=== PATIENT | female | born 1960 | race Caucasian/White ===

== ENCOUNTER 2025-04-20 09:00 | Inpatient (IN) | payer OTHER ==
[~2025-04-20] VITALS: Ht 160 cm; Wt 44.9 kg
[~2025-04-20 09:00] MED LIST: ASPIRIN325 MG PO; CYCLOBENZAPRINE10 MG PO; FENTANYL1 EAC4 TD; MORPHINE SULFAT15 M1 PO; OXYCODONE HCL10 MG PO
--- OUTSIDE RECORDS SUMMARY | 2025-04-20 09:05 | XMS ---
PreManage Notification: SWATHI VELOZ Security Nail Galvanizer Events No recent Security Events currently on file CRITERIA MET - [facility] - 2 Visits in 30 Days CARE PROVIDERS SANDRA GARAY Nurse Practitioner: Family [facility] PHONE: [phone] SUNSHINE SALAZAR Physician Salmon Troll Fisher Maddi MONSIVAISIE PHONE: [phone] DEANNA DOBBINS Nurse Practitioner: [facility] PHONE: [phone] [place] has no Care Guidelines for this patient. E.D. VISIT COUNT (12 MO.) 2 [facility] Martinez 1 [facility] H. TOTAL 3 NOTE: Visits indicate total known visits. ED/UCC VISIT TRACKING (12 MO.) 04/20/2025 09:00 [facility] [place] TYPE: Emergency COMPLAINT: - WEAKNESS 03/27/2025 01:31 [facility] [place] TYPE: Emergency COMPLAINT: - LT HIP PAIN 01/11/2025 18:19 [facility] OR TYPE: Emergency DIAGNOSES: - Compression of brain - Other specified disorders of brain - vomiting AMS - Nausea - Vomiting INPATIENT VISIT TRACKING (12 MO.) 03/27/2025 02:25 [facility] [place] TYPE: Medical Surgical COMPLAINT: - INTERTROCHANTERIC FX OF LT FEMUR,METASTATIC DIAGNOSES: - Anemia, unspecified - Anemia, unspecified - Atherosclerotic heart disease of [place] coronary artery without angina pectoris - Atherosclerotic heart disease of [place] coronary artery without angina pectoris - Displaced bicondylar fracture of left tibia, initial encounter for closed fracture - Displaced bicondylar fracture of left tibia, initial encounter for closed fracture - Displaced subtrochanteric fracture of left femur, initial encounter for closed fracture - Displaced subtrochanteric fracture of left femur, initial encounter for closed fracture - Fall on same level, unspecified, initial encounter - Fall on same level, unspecified, initial encounter - Hypo-osmolality and hyponatremia - Hypo-osmolality and hyponatremia - Malignant neoplasm of brain, unspecified - Other chronic pain - Other disorders of phosphorus metabolism - Pain in left hip - Tachycardia, unspecified - Tubal ligation status - Unspecified osteoarthritis, unspecified site - Unspecified osteoarthritis, unspecified site 01/12/2025 01:03 [facility] TYPE: General Medicine DIAGNOSES: - Adverse effect of unspecified drugs, medicaments and biological substances, initial encounter - Hyperglycemia, unspecified - Other specified disorders of brain - Other specified postprocedural states - Weakness - Cerebellum Mass [email or web address]
[2025-04-20] MEDS ORDERED: SODIUM CHLORIDE 0.9% 1,000 ML IV ONE ×2 (09:15→10:00)
[2025-04-20 09:21] LABS: BASOPHILS 0.4 % (0.1-1.2); EOSINOPHILS 1.9 % (0.7-5.8); LYMPHOCYTES 14.2 % (19.3-51.7); MCH 23.3 PG (25.6-32.2); MCHC 29.3 g/dL (32.2-35.5); MCV 79.6 fL (79.4-94.8); MONOCYTES 10.1 % (4.7-12.5); NEUTROPHILS 72.8 % (34.0-71.1); RBC 3.43 M/uL (3.93-5.22)
[2025-04-20] MEDS ORDERED: fentaNYL citrate 100 MCG/2 ML VIAL IV PRN (09:30)
[2025-04-20] MEDS ORDERED: TYLENOL325 MG PO (09:34)
[2025-04-20] MEDS ORDERED: DULCOLAX10 MG PR (09:35)
[2025-04-20 09:37] LABS: ALT (SGPT) 25.0 U/L (14-59); AST (SGOT) 78.0 U/L (15-37); GLOMERULAR FILTRATION RATE,EST 23.0 mL/min (>60); PROTEIN, TOTAL 8.0 g/dL (6.4-8.2); UREA NITROGEN 73.0 mg/dL (7-18)
[2025-04-20 09:40] LABS: LACTIC ACID, BLOOD 1.5 mmol/L (0.4-2.0)
[2025-04-20] MEDS ORDERED: LIDOCAINE 2% VISCOUS 6 ML SYR TOP ONE (10:00)
[2025-04-20 10:21] LABS: BLOOD/HGB, URINE LARGE (Negative); KETONE, URINE NEGATIVE (Negative); LEUK ESTERASE, URINE MODERATE (negative); NITRITE, URINE NEGATIVE (negative)
[2025-04-20 10:28] LABS: BACTERIA, URINE 1+ /hpf (negative); CASTS, URINE NONE SEEN \\lpf; CRYSTALS, URINE NONE SEEN (0-1+); EPITHELIAL CELLS, URINE 0 /lpf (0-1+); REFLEX CULTURE, URINE Yes (No)
[2025-04-20 10:38] LABS: CORONAVIRUS COVID-19 AG NEGATIVE (NEGATIVE)
[2025-04-20] MEDS ORDERED: SODIUM CHLORIDE 0.9% 500 ML IV PRN (11:00)
[2025-04-20 11:34] LABS: LACTIC ACID, BLOOD 1.5 mmol/L (0.4-2.0)
[2025-04-20] MEDS ORDERED: SODIUM CHLORIDE 0.9% 1,000 ML IV SCH ×2 (12:00→12:45)
[2025-04-20] MEDS ORDERED: PHARMACY RENAL DOSE ADJUSTMENT 1 DOSE MISC PO SCH (12:00)
[2025-04-20 12:52] VITALS: BP 110/64
[2025-04-20] MEDS ORDERED: ENOXAPARIN SODIUM 30 MG/0.3 ML SYR SUB-Q SCH (13:03)
--- NOTE | 2025-04-20 13:13 | NUR ---
THIS RN TO ER AT 1236, REPORT RECEIVED FROM LALY LAMBERT. THIS RN ESCORTS PT FROM ER TO MED-SURG VIA GURNEY, ARRIVES TO MED-SURG ROOM 112 AT 1245. PT IS AWAKE, ROUSE TO VOICE. TRANSFERRED TO BED VIA DRAW SHEET, TOLERATES THIS FAIR. RIDER CATHETER IN PLACE, DRAINS CLOUDY YELLOW URINE. VS OBTAINED, TACHYCARDIA NOTED. PT MOANS OCCASIONALLY, DOES NOT TOLERATE MOVEMENT WELL. TELEMETRY #[address] IV IN LW ADN RFA FLUSHED WITH 10 CC OF NS, PATENT. SPO2 98% ON 4LPM, TITRATED DOWN TO 3LPM. BED IN LOW POSITION, RAILS UP X4, BED ALARM ON, CALL LIGHT IN REACH. PT ORIENTED TO ROOM, BED AND CALL LIGHT. PT A&O X4.
[2025-04-20] MEDS ORDERED: OXYCODONE HCL5 M3 PO (13:26)
--- NOTE | 2025-04-20 14:21 | NUR ---
PT PASSES BM IN BED. PERICARE PROVIDED. LARGE BOWN FORMED STOOL PASSED. NOTED STAGE 3 PRESSURE INURY OVER SACROCOCCYGEAL REGION. WOUND BASED IS 90% PINK MOIST, NON-GRANULAR TISSUE, 10% ADHERENT YELLOW TISSUE. PT IS CACHECTIC, BONY STRUCTURES PROMINENT. PERIWOUND SKIN DENUDED, FRICTION AND SHEAR SUSPECTED ETIOLOGY. WOUND CLEANSED WITH NS AND PATTED DRY. TRIAD CREAM APPLIED OVER WOUND BASE. BREIF HELD TO AVOID EXCESS MOISTURE. INCONTINENCE PAD IN PLACE. UNABLE TO OBTAINED PHOTO. WOUND SIZE: 7 CM X 9 CM X 0.1 CM. WAFFLE STATIC OVERLAY IN PLACE OVER BED SURFACE. WARM PACK PROVIDED TO PT FOR COMFORT, WARM BLANKET PROVIDED. PT RESTS IN BED, CALM. CALL LIGHT IN REACH, VISITOR X3 AT BEDSIDE.
[2025-04-20 15:42] VITALS: BP 110/64
[2025-04-20] MEDS ORDERED: FENTANYL 25 MCG/HR 1 EA TDSY TD SCH (16:45)
--- NOTE | 2025-04-20 16:56 | NUR ---
NOTIFIED OF PT CONSISTENT NEED FOR PAIN MEDICATION AND ABSENCE OF FENTANYL PATCH PT USES AT HOME. NEW ORDERS RECEIVED. PT RECEIVED FENTANYL IV FOR PAIN ORDERED. FENTANYL PATCH PLACED ON RIGHT SHOULDER, SEE EMAR. PT RESTS IN BED, MOANS OCCASIONALLY. CALL LIGHT IN REACH. RFA IV C/D/I, NO REDNESS OR SWELLING NOTED, PATENT.
[2025-04-20] MEDS ORDERED: POTASSIUM CHLORIDE 10 MEQ TABCR PO ONE (17:30)
[2025-04-20 17:40] VITALS: BP 95/53
[2025-04-20 17:44] VITALS: BP 95/53
[2025-04-20] MEDS ORDERED: POTASSIUM BICARBONATE/CIT AC 20 MEQ TABEF PO ONE (18:00)
[2025-04-20] MEDS ORDERED: CALCITONIN SALMON 400 UNIT/2 ML IM ONE ×2 (18:30→23:00)
[2025-04-20] MEDS ORDERED: ZOLEDRONIC AC/MANNITOL/0.9NACL 4 MG/100 ML BAG IV ONE ×2 (18:30→23:00)
--- NOTE | 2025-04-20 19:39 | NUR ---
PT RESTING IN BED, CALL LIGHT WITHIN REACH. REPORT RECEIVED FROM LIEN LAGOS RN.
--- NOTE | 2025-04-20 20:00 | NUR ---
PT'S SON IN TO VISIT PT. DISCUSSED POC WITH PT AND SON.
--- NOTE | 2025-04-20 20:31 | NUR ---
BEDSIDE CPOX APPLIED TO PATIENT. SPO2 94% ra
[2025-04-20 21:01] VITALS: BP 103/57
--- NOTE | 2025-04-20 21:17 | NUR ---
V/S AND I&O'S COMPLETED. RIDER CARE DONE.
[2025-04-20 21:57] VITALS: BP 103/57
--- NOTE | 2025-04-20 22:00 | NUR ---
MEWS ASSESSMENT COMPLET. PT CONDITION UNCHANGED FROM PREVIOUS ASSESSMENT.
--- NOTE | 2025-04-20 23:40 | NUR ---
PT RESTING IN BED WITH EYES CLOSED AND RESPIRATIONS EVEN AND UNLABORED. O2 94% ON CPOX. CALL LIGHT WITHIN REACH.
[2025-04-21] VITALS (9 sets, daily range): BP systolic 102–124; BP diastolic 52–63
--- NOTE | 2025-04-21 00:08 | NUR ---
PT REPOSITIONED AND ORAL CARE PERFORMED AFTER ADMINISTERING PAIN MEDICATION. PT TOLERATED WELL. PT NOW RESTING IN BED WITH EYES CLOSED AND RESPIRATIONS EVEN AND UNLABORED. CALL LIGHT WITHIN REACH.
--- NOTE | 2025-04-21 01:37 | NUR ---
RECEIVED REPORT FROM ROLO RUFFIN. PT RESTING IN BED, IV FLUIDS INFUSING. FENTANYL PATCH VERIFIED TO RIGHT UPPER SHOULDER WITH TEGADERM IN PLACE. CALL LIGHT WITHIN REACH. PT MOANS WHEN ENTERING ROOM, PRN FENTANYL LAST GIVEN AT 2356, PT CAN HAVE DOSE Q20 MINUTES AT THIS TIME. PT DOES NOT ANSWER YES/NO TO PAIN JUST MOANS. UNABLE TO GIVE NUMERICAL RATING DESPITE ASKING AT THIS TIME, WHICH PRIOR RN STATES HAS CHANGED FOR HER SINCE SHE STARTED. TELE #[address], SINUS TACH IN THE 100'S. CPOX IN PLACE, RT ORDERED PATIENT RECEIVING FENTANYL FOR PAIN AND FULL CODE STATUS AT THIS TIME JUST TO MONITOR, SATS 94% ON 3L NC AT THIS TIME. ALL PATIENT CARE NEEDS MET AT THIS TIME, CALL LIGHT WITHIN REACH.
--- NOTE | 2025-04-21 02:31 | NUR ---
GATE CLERK REPORTED TO THIS RN LOW GRADE TEMP, PT IS MOANING, PRN FENTANYL GIVEN. WILL RECHECK TEMP AT 0400, IF INCREASED WILL NOTIFY MD. IV FLUIDS CHANGED OVER TO NEW BAG. RIDER OUT 600ML THE LAST 4HOURS, VERY LIGHT IN COLOR WITH HEAVY SEDIMENT, URINE CULTURE PENDING. CPOX REMAINS IN PLACE. THIS RN WITH GATE CLERK ASSISTANCE TURNED PATIENT ONTO RIGHT SIDE WITH PILLOWS. PT MOANED WITH PAIN. DESPITE PATIENT NOT GETTING UP OR BEING IMPULSIVE, BED ALARM PLACED FOR SAFETY.
[2025-04-21 04:38] LABS: BASOPHILS 0.3 % (0.1-1.2); EOSINOPHILS 0.1 % (0.7-5.8); LYMPHOCYTES 15.5 % (19.3-51.7); MCH 23.2 PG (25.6-32.2); MCHC 28.3 g/dL (32.2-35.5); MCV 82.1 fL (79.4-94.8); MONOCYTES 10.9 % (4.7-12.5); NEUTROPHILS 72.4 % (34.0-71.1); RBC 2.80 M/uL (3.93-5.22)
[2025-04-21 04:50] LABS: SMEAR REVIEW BLOOD SEE COMMENTS
[2025-04-21 04:53] LABS: GLOMERULAR FILTRATION RATE,EST 34.0 mL/min (>60); UREA NITROGEN 53.0 mg/dL (7-18)
--- NOTE | 2025-04-21 05:14 | NUR ---
MD CALLED WITH UPDATE ON LABS THIS MORNING. H/H THIS MORNING DROPPED 6.5/, PER MD TYPE & SCREEN/CROSSMATCH AND TRANSFUSE 1 UNIT PRBC. CALCIUM LEVEL IMPROVED TO 11.9, ORDER TO CHANGE FLUIDS TO 1/2NS @ 200ML/HR. K LEVEL DROPPED THIS MORNING TO 2.8, ORDER FOR 40MEQ X2 IV TO BE GIVEN. INFORMED OF TEMP THROUGHOUT NIGHT OF 100.5 AT 0200, THEN 99.8 AT 0445, PER OKAY TO ORDER DC TYLENOL 650MG RECTALLY Q6P. ORDERS REPEATED BACK TO MD, INPUT INTO THE COMPUTER AND WILL GET STARTED ON MEDS [place]. INCIDENT COMMANDER NOTIFIED OF CHANGES.
[2025-04-21] MEDS ORDERED: POTASSIUM CHLORIDE 10 MEQ/100 ML BAG IV SCH ×2 (05:15→05:30)
[2025-04-21] MEDS ORDERED: SODIUM CHLORIDE 0.45% 1,000 ML IV SCH ×2 (05:15→18:15)
[2025-04-21] MEDS ORDERED: ACETAMINOPHEN 650 MG SUPP PR PRN (05:15)
--- NOTE | 2025-04-21 05:36 | NUR ---
IV FLUIDS CHANGED OVER AT THIS TIME. LAB PRESENT IN THE ROOM DRAWING FOR ADDITIONAL LABS FOR BLOOD TRANSFUSION. CONSENT IS ON THE CHART, AWAITING MD ARRIVAL TO GET SIGNED.
--- NOTE | 2025-04-21 06:02 | NUR ---
MD NOTIFIED OF MEWS, INFORMED PT HAS HAD 1400ML UOP SINCE 10PM, SHE IS TACHYPNEIC AND MENTATION IS OFF, SHE ISNT ABLE TO REALLY MAKE NEEDS KNOWN AT THIS TIME, SHE MOANS IN PAIN CANNOT PROVIDE WITH A NUMERICAL SCALE. TEMP IMPROVED TO 99.0 ON OWN, PRN TYLENOL AVAILABLE IF NEEDED. IV FLUIDS INFUSING, POTASSIUM HAS BEEN STARTED. INFORMED WE NEED CONSENT REVIEWED WITH SON (POTENTIALLY) PATIENT UNABLE TO PROVIDE CONSENT AT THIS TIME, PER RN. MD WILL ROUND AND SIGN CONSENT HERE SHORTLY. NO OTHER ORDERS AT THIS TIME, WILL REVIEW VITALS Q1HR FOR THE NEXT 3 HRS PER MEWS SCORE.
[2025-04-21 06:20] LABS: ABO A; ANTIBODY SCREEN NEGATIVE; IS CROSSMATCH COMPATIBLE; RH POSITIVE
--- NOTE | 2025-04-21 06:24 | NUR ---
THIS RN PRESENT WITH , CALLED MART (SON) TO GET VERBAL CONSENT VIA PHONE FOR 1 UNIT PRBC TRANFUSION. PER SON, AGREES ON TRANFUSION AT THIS TIME.
--- NOTE | 2025-04-21 06:45 | NUR ---
PT BLOOD TRANFUSION STARTED, VS STABLE AT THIS TIME. PT REQUIRES X1 HOUR VITALS STILL X2 MORE HOURS PER ABNORMAL MEWS, WILL PASS ON TO DAY SHIFT STAFF. PT RESTING IN BED AT THIS TIME. NO CONCERNS AT THIS TIME, BED ALARM IN PLACE FOR SAFETY, PT IS NOT IMPULSIVE AT THIS TIME.
[2025-04-21] MEDS ORDERED: ZOLEDRONIC AC/MANNITOL/0.9NACL 4 MG/100 ML BAG IV ONE (07:00)
[2025-04-21] MEDS ORDERED: CALCITONIN SALMON 400 UNIT/2 ML IM ONE (07:00)
--- NOTE | 2025-04-21 07:00 | NUR ---
PER MD, ORDERED MEDS FOR HER HYPERCALCEMIA, ORDERS INPUT. NEW IV STARTED BY VERONICA FOR ADDITIONAL MEDS. IV FLUIDS/POTASSIUM INFUSING TO (R) WRIST, BLOOD PRODUCTS INFUSING TO (L) WRIST. REPEAT BMP ORDERED FOR 1200, WHICH IS 4HOURS POST TRANSFUSION FOR HYPERCALCEMIA. NO OTHER CONCERNS/ORDERS AT THIS TIME.
[2025-04-21] MEDS ORDERED: POTASSIUM CHLORIDE 20 MEQ in DEXTROSE 5% 250 ML IV ONE (07:30)
--- NOTE | 2025-04-21 08:16 | NUR ---
Patient awake, alert to self, no acute distress. Patient intermittently moans, she reports she is painful. Admin fentantyl 50mcg iv at this time. Fentanyl 25mcg patch noted to right deltoid. Blood infusing at this time, 125ml/hr, IV site patent. KCL iv started per order. IV sites are all patent at this time. Patient in bed resting, she appears comfortbale, no current needs. Bed alarm intact.
[2025-04-21] MEDS ORDERED: POTASSIUM CHLORIDE 40 MEQ,LIDOCAINE HCL 1% 40 MG in DEXTROSE 5% 250 ML IV ONE (09:30)
--- NOTE | 2025-04-21 09:32 | NUR ---
BLOOD INFUSION IS COMPLETE. IV IS FLUSHED AND CAPPED. ST IN TO ATTEMPT TO WORK WITH PATIENT. PATIENT REFUSES TO PARTICIPATE.
[2025-04-21] MEDS ORDERED: FENTANYL1 EAC4 TD (09:37)
[2025-04-21] MEDS ORDERED: FLEET ENEMA133 ML PR (09:38)
[2025-04-21] MEDS ORDERED: MILK OF MA400 MG/5 M PO (09:39)
[2025-04-21] MEDS ORDERED: MIRTAZAPINE7.5 MG PO (09:40)
[2025-04-21] MEDS ORDERED: SENNA8.6 MG PO (09:42)
--- NOTE | 2025-04-21 09:42 | NUR ---
MED REC COMPLETE
--- NOTE | 2025-04-21 10:11 | NUR ---
Patient left medical floor for imaging study.
--- NOTE | 2025-04-21 10:42 | EKG ---
[facility] [address] [facility] [place] [address] Signed Sinus tachycardia Abnormal ECG When compared with ECG of 27-MAR-2025 02:22, ST now depressed in Anterolateral leads T wave inversion now evident in Anterior leads Confirmed by JOSÉ MANUEL ASHTON MD ([id number]) on 04/21/2025 10:42:13 AM Electronically Signed By: JOSÉ MANUEL ASHTON 04/21/25 1042 PATIENT NAME: VELOZSWATHI Electrocardiogram DATE OF : 56 PHYSICIAN: JOSÉ MANUEL ASHTON REPORT #: [id number] REPORT IS CONFIDENTIAL AND NOT TO BE RELEASED WITHOUT AUTHORIZATION
--- NOTE | 2025-04-21 10:50 | NUR ---
Admin fentanyl 50mcg iv for 3/10 generalized pain.
--- NOTE | 2025-04-21 11:50 | NUR ---
ADMIN FENTATNYL 50MCH IV FOR REPORTS OF GENERALIZED PAIN. PT MOANING OUT, SHE REPORTS SHE IS PAINFUL. FAMILY MEMEBER AT BEDSIDE.
[2025-04-21 12:21] LABS: GLOMERULAR FILTRATION RATE,EST 44.0 mL/min (>60); UREA NITROGEN 49.0 mg/dL (7-18)
--- NOTE | 2025-04-21 13:19 | NUR ---
Patient moaning, she reports she is in pain. Admin fentanyl 50mcg iv at this time. SP02 93% on 2l, respirtions non labored.
--- NOTE | 2025-04-21 15:00 | NUR ---
Spoke with Violeta and her son Melvin. Pt would like to go home to her mom's house [facility] [address]. Pt is currently living at [facility]. Pt has declined rapidly since last admission. Pt completed a POLST form and Dr. Suazo signed for a DNR. Son is waiting for grandmother to visit this afternoon or in the morning to see if she and spouse could provide cg for hospice.
--- NOTE | 2025-04-21 16:00 | NUR ---
Spoke with Mela from [facility] and asked if they could accept this pt back as a Comfort Care/Hospice patient and she stated, "Yes".
[2025-04-21] MEDS ORDERED: ARTIFICIAL TEARS 15 ML BTL OU PRN (17:15)
[2025-04-21] MEDS ORDERED: ATROPINE SULFATE 1% OPTH DROPS SL PRN (17:15)
--- NOTE | 2025-04-21 17:32 | NUR ---
Admin fentanyl 50mcg iv at this time for reprted pain.
[2025-04-21] MEDS ORDERED: SODIUM CHLORIDE 0.9% 1,000 ML IV SCH (18:15)
--- NOTE | 2025-04-21 18:58 | NUR ---
Patient moaning out. Patient has been receiving iv fentanyl frequently, she still appears anxious/painful. New order obtained from Dr. Suazo to start ativan 1mg iv every four hours as needed for anxiety.
[2025-04-21] MEDS ORDERED: LORazepam 2 MG/ML VIAL IV PRN (19:00)
--- NOTE | 2025-04-21 19:40 | NUR ---
RECEIVED REPORT FROM LALY JIMENES. PT FAMILY DESTINEE AT BEDSIDE. JALIL RN IN TO MEDICATE AND REPOSITION.
--- NOTE | 2025-04-21 19:40 | NUR ---
Patient repositioned at this time. Patient moaning out, she reports she is painful. Admin ativan 1mg iv and fentanyl 50mcg iv. Family at bedside.
--- NOTE | 2025-04-21 20:45 | NUR ---
PT RESTING COMFORTABLY ON LEFT SIDE. DROWSY. NO REAL VERBAL RESPOSNSE, SOME FEW MUMBLES HEARD. NO S/S PAIN. LSC DIM, 2L O2 N/C IN PLACE-CPOX ON. HRR. BT HYPO. RFA IV W/ 1/2NS @ 200MLS/HR. 2 SL TO LEFT WRIST WNL. PT HAS LARGE BUMP TO LEFT VENTURA. F/C CLEAR YELLOW W/ SEDIMENT. WILL ASSESS SKIN AT LATER TIME WHEN REPOSITIONED.
--- NOTE | 2025-04-21 22:55 | NUR ---
NEW BAG IVF HUNG. PT CONT TO BE DROWSY. APPEARS COMFORTABLE.
--- NOTE | 2025-04-21 23:32 | NUR ---
PT STILL DROWSY, MINIMAL RESPONSES. SKIN CHECK COMPLETED, OPEN WOUND TO BILAT COCCYX. WOUND CLEANSED W/ SOAP AND WATER AND CREAM APPLIED. PT FLOATED ON PILLOWS. APPEARS COMFORTABLE.
--- NOTE | 2025-04-21 23:37 | NUR ---
RECEIVED ORDER FROM DR. ASHTON TO DC IVF. IVF DC'D AT THIS TIME.
--- NOTE | 2025-04-21 23:59 | NUR ---
FORESTRY WORKER DID RIDER CARE AND REPOSITIONED PT WITH RN
--- NOTE | 2025-04-22 00:56 | NUR ---
PT ASLEEP, APPEARS COMFORTABLE. NO SIGNS OR SYMPTOMS OF PAIN PRESENT.
--- NOTE | 2025-04-22 04:18 | NUR ---
PT REPOSITIONED TO RIGHT SIDE W/ MAX ASSIST. PT MOANING SLIGHTLY, GRIMACING. PT MEDICATED W/ PRN IV FENTANYL.
--- NOTE | 2025-04-22 05:10 | NUR ---
PT SLEEPING SOUNDLY. APPEARS COMFORTABLE, NO FURTHER MOANING.
--- NOTE | 2025-04-22 06:38 | NUR ---
PT NOTED TO HAVE 2 REMAINING GORDON TO LLE DISTAL INCISION. CHARGE NURSE BELEN NOTIFIED. WILL PASS ON TO DAYSHIFT.
--- NOTE | 2025-04-22 07:24 | NUR ---
MORNING REPORT RECIEVED FROM LALY MARIN. PT LAYING IN BED WITH EYES CLOSED CHEST RISE EQUAL BILAT. PT APPEARS CALM AND RELAXED AT THIS TIME WITH NO CURRENT NEEDS AT THIS TIME, PT HAS CALL LIGHT IN REACH. 2L NC IN PLACE FOR PT SAFETY.
--- NOTE | 2025-04-22 07:43 | NUR ---
PATIENT GIVEN 1MG OF IV ATIVAN, RESPIRATIONS ARE 40/MIN.
[2025-04-22] MEDS ORDERED: ENOXAPARIN SODIUM 40 MG/0.4 ML SYR SUB-Q SCH (09:00)
--- NOTE | 2025-04-22 09:30 | NUR ---
PT IS LAYING IN BED EYES CLOSED CHEST RISE EQUAL BILAT, PT APPEARS IN NO DISTRESS AT THIS TIME. PT IS CALM AND RELAXED CALL LIGHT IN REACH AND CURTAIN OPEN FOR PT SAFETY.
--- NOTE | 2025-04-22 10:33 | NUR ---
PT LAYING IN BED WITH EYES CLOSED CHEST RISE EQUAL BILAT, PT IS CALM AND APPEARS COMFORTABLE, PT HAS CURTAIN OPEN FOR PT SAFETY AND CALL LIGHT IN REACH IN NEEDED, PT WILL BE CHECKED ON AGAIN SOON.
--- NOTE | 2025-04-22 11:15 | NUR ---
PT LAYING IN BED, PT REPOSITIONED, PT TO BE REPOSITIONED AT 1200, PT HAS EYES CLOSED CHEST RISE EQUAL BILAT. PT HAS 2L NC IN PLACE AND CURTAIN OPEN FOR PT SAFETY. CALL LIGHT IN REACH. PT APPEARS COMFORTABLE AT THIS TIME.
--- NOTE | 2025-04-22 11:17 | NUR ---
VISITED DURING SPIRITUAL CARE ROUNDS. PT APPEARED TO BE SLEEPING. DID NOT DISTURB. PROVIDED PRAYER.
--- NOTE | 2025-04-22 11:55 | NUR ---
IN TO SPEAK WITH SON. PATIENT IS UNRESPONSIVE. SON STATES HIS GRANDMOTHER, PATIENT'S MOTHER, WILL BE IN THIS AFTERNOON. THEY PREFER TO TAKE PATIENT HOME FOR HOSPICE CARE. THEY DO NOT WANT HER RETURNING TO [facility]. STATES ANY OTHER FACILITY IS GOING TO BE TOO COSTLY. DISCUSSED POTENTIAL NEED FOR CAREGIVER ASSISTANCE AT HOME DUE TO HIGH LEVEL OF CARE REQUIRED FOR PATIENT MOBILITY. ALSO DISCUSSED TRANSPORTATION. INFORMED NO AMBULANCE SERVICE TO TRANSPORT PATIENT TO HOME. INFORMED LATITUDE HAS A STRETCHER SERVICE AND WHAT POTENTIAL COST OF TRANSPORT HOME WOULD BE. VERBALIZES UNDERSTANDING. PATIENT'S SON IS CONCERNED ABOUT [place] PAPERWORK. STATES PAPERWORK WAS GIVEN TO NURSING STAFF LAST NIGHT.
--- NOTE | 2025-04-22 12:42 | NUR ---
PT LAYING IN BED WITH EYES CLOSED CHEST RISE EQUAL BILAT, PT APPEARS COMFORTABLE AT THIS TIME WITH SON SITTING AT PT BED SIDE, THIS RN GOT ICE FOR THE FAMILY AND THE FAMILY STATES SHE HAS LOOKED COMFORTABLE AND DONT THINK SHE HAS ANY NEEDS. PT FAMILY ORIENTED TO ROOM AND CALL LIGHT IN REACH.
--- NOTE | 2025-04-22 13:47 | NUR ---
PT LAYING IN BED ITH EYES CLOSED CHEST RISE EQUAL BILAT WITH 2L NC IN PLACE. FAMILY IS AT PT BED SIDE AND PT APPEARS COMFORTABLE AND SHOWS NO SIGNS OF DISTRESS AT THIS TIME FAMILY HAS CALL LIGHT IN REACH IF ANYTHING IS NEEDED.
--- NOTE | 2025-04-22 14:30 | NUR ---
PT GIVEN 1MG PRN ATIVAN WASTED WITH LALY ABRAMS. PT TOLERATED ATIVAN WELL, AND FAMILY IN ROOM THIS RN AND SHUN FROM CASE MANAGEMENT SPOKE WITH PT MOTHER AND ANSWERED QUESTIONS ABOUT POC. PT FAMILY HAS NO OTHER QUESTIONS AT THIS TIME AND FAMILY HAS NO OTHER CONCERNS AT THIS TIME.
--- NOTE | 2025-04-22 14:42 | NUR ---
SPOKE WITH PATIENT'S MOTHER. SHE STATES SHE IS UNABLE TO TAKE PATIENT HOME TO CARE FOR HER SHE IS ALREADY A CAREGIVER FOR HER SPOUSE AND SISTER AND SHE CAN NOT CARE FOR PATIENT TOO. STATES SHE PREFERS THE PATIENT'S CHILDREN MAKE THE FINAL DECISION ABOUT WHERE THE PATIENT GOES FOR DC.
--- NOTE | 2025-04-22 15:39 | NUR ---
PT LAYING IN BED SHOWED SIGNS OF DISCOMFORT 50MCG OF FENT GIVEN (SEE EMAR) WASTED REMAINING WITH LALY KIM
--- NOTE | 2025-04-22 15:54 | NUR ---
PATIENT TOLERATED A PARTIAL BED BATH. CARL/CATHETER CARE DONE. PATIENT REPOSITIONED ON TO THEIR BACK. ORAL CARE WAS ATTEMPTED AND CHAPSTICK WAS APPLIED TO LIPS.
--- NOTE | 2025-04-22 15:57 | NUR ---
ATTEMPT TO SPEAK WITH SON, HE IS NO LONGER AT FACILITY. STAFF IN ROOM COMPLETING BED BATH.
--- NOTE | 2025-04-22 16:55 | NUR ---
SPOKE WITH MART REGARDING DC PLAN. STATES HE IS TRYING TO GET OFF WORK TO HELP FAMILY WITH PATIENT CARE AT HOME WITH HOSPICE. EDUCATED ON WHAT HOSPICE INVOLVES. ALSO DISCUSED RETURN TO [facility] AND THEIR DAILY RATE OF $550 NOT COVERED BY INSURANCE. DISCUSSED POTENTIALLY SENDING PATIENT TO [facility], UNSURE OF BED AVAILABILITY. MART IS OK IF SUMMER FROM [facility] CALLS HIM TO DISCUSS RATES FOR ADMISSION IF THEY DO HAVE A ROOM. NO FURTHER QUESTIONS AT THIS TIME. MART STATES HE IS GOING TO DISCUSS FURTHER WITH FAMILY TONIGHT AND HOPEFULLY MAKE A DECISION BY TOMORROW.
--- NOTE | 2025-04-22 17:21 | NUR ---
PT LAYING IN BED, PT APPEARS COMFORTABLE, PT SON IS IN ROOM AT THIS TIME AND DENIES NEEDS CALL LIGHT IN REACH AND REFESHMENTS IN ROOM.
--- NOTE | 2025-04-22 19:05 | NUR ---
REPORT RECEIVED FROM KATHI RUFFIN. pt RESTING IN THE BED WITH EYES CLOSED. BOARD UPDATED. FENTANYL PATCH VERIFIED WITH DAY SHIFT RN. NO OTHER NEEDS AT THIS TIME. CALL LIGHT WITHIN REACH.
[2025-04-22 20:33] VITALS: BP 119/64
--- NOTE | 2025-04-22 21:00 | NUR ---
ASSESSMENT DONE. pt REPOSITION IN THE BED WITH PILLOW UNDER HER HIPS. pt CRIED OUT IN PAIN AND HER WORK OF BREATHING INCREASED. THIS RN GAVE pt PRN PAIN MEDS. IV'S ASSESSED, WNL. RIDER CARE DONE. RIDER EMPTIED. pt DENIES ANY OTHER NEEDS AT THIS TIME. CALL LIGHT WITHIN REACH.
--- NOTE | 2025-04-22 23:30 | NUR ---
pt RESTING IN THE BED WITH EYES CLOSED. RR AT 40. NO OTHER NEEDS AT THIS TIME. CALL LIGHT WIIN SCOUT.
--- NOTE | 2025-04-23 01:21 | NUR ---
pt RESTING IN THE BED WITH EYES CLOSED. RR EVEN AND UNLABORED. CALL LIGHT WIHTIN REACH.
--- NOTE | 2025-04-23 03:00 | NUR ---
pt RESTING IN THE BED WITH EYES CLOSED. RR EVEN AND UNLABORED. CALL LIGHT WITHIN REACH. pt REPOSITIONED IN WITH PILLOW UNDER LEFT SIDE.
--- NOTE | 2025-04-23 04:27 | NUR ---
pt RESTING IN THE BED WITH EYES CLOSED. RR EVEN AND UNLABORED. CALL LIGHT WITHIN REACH.
--- NOTE | 2025-04-23 04:47 | NUR ---
IN RM TO REPOSITION pt. pt RR DOWN TO 40. THIS ADMINISTERED PRN ATIVAN. PILLOW PLACED UNDER RIGHT SIDE. NO OTHER NEEDS AT THIS TIME. CALL LIGHT WITHIN REACH.
--- NOTE | 2025-04-23 06:46 | NUR ---
CONFIRMED WITH DR ASHTON, HE IS AWARE OF REMAINING X2 GORDON TO LEFT OUTER KNEE. NO DOCUMENTATION SHOWN TO ENSURE DR ENGLISH IS AWARE. PER DR ASHTON, WAIT UNTIL AFTER SHIFT CHANGE AND HAVE DAYSHIFT RN CALL DR ENGLISH TO ENSURE HE IS AWARE AND ASK IF HE WOULD LIKE THOSE REMOVED-REPEATED TO CONFIRM AND NURSE NOTIFY PLACED. DAYSHIFT NITROCELLULOSE MAKER ROLO MADE AWARE.
--- NOTE | 2025-04-23 07:48 | NUR ---
RECEIVED REPORT FROM LALY BURLESON. PATIENT RESTING IN BED WITH EYES CLOSED, BREATHING TACHYPNEIC, UNCHANGED PER DENTAL ASSISTING INSTRUCTOR RN. CALL LIGHT IN REACH, BED LOWERED. FETANYL PATCH CHECKED BY LALY RIOS, BENJY, LALY, AND THIS RN.
--- NOTE | 2025-04-23 08:06 | NUR ---
CALLED DR ENGLISH AND HE ORDERED FOR PATIENTS LEFT LEG GORDON TO BE REMOVED.
[2025-04-23] MEDS ORDERED: fentaNYL 1 EACH TDSY TD SCH (09:00)
[2025-04-23 09:19] VITALS: BP 170/67
[2025-04-23 09:24] VITALS: BP 170/67
--- NOTE | 2025-04-23 09:35 | NUR ---
Attempted to speak with Violeta. She has cont. to decline and does not respond to voice. Pt has not been responsive since yesterday. Pt is on comfort measures. Per report, family did not want pt to return to [place] as she has used her SNF days and will have a $555 dollar a day charge. Pt's mom is not able to provide care for daughter as she is 88 yo and caring for her sister and spouse. I had a lengthy visit with the son on and he was applying for [place], but he did not plan on providing caregiving for home. I discussed above with Dr. Suazo and plan at this time is for this pt to remain here on comfort care.
--- NOTE | 2025-04-23 11:20 | NUR ---
NURSE DID PATIENT'S CARL CARE AND RIDER CARE. I WASHED PATIENT'S FACE AND DID ORAL CARE ALSO PUT CHAPSTICK ON HER LIPS. ALSO PUT HER STUFF ANIMAL BY HER.
--- NOTE | 2025-04-23 11:57 | NUR ---
VISITED DURING SPIRITUAL CARE ROUNDS. PT NOT RESPONSIVE. SON AND DAUGHTER AT BEDSIDE REQUESTED PRAYER, TEARFUL. OUTPATIENT CODER PROVIDED SUPPORTIVE PRESENCE, HOSPITALITY, PRAYER, FACILITATED INTERACTION WITH THERAPY ANIMAL. FAMILY EXPRESSED GRATITUDE, SADNESS.
[2025-04-23] MEDS ORDERED: SCOPOLAMINE 1 MG/3 DAYS PATCH 1 EACH TDSY TD SCH (12:00)
--- NOTE | 2025-04-23 16:35 | NUR ---
THIS RN UPDATES DR. HYATT ON PT STATUS. STATES HE WILL PLACE NEW ORDERS.
[2025-04-23] MEDS ORDERED: KETOROLAC TROMETHAMINE 15 MG/ML VIAL IV PRN (16:45)
[2025-04-23] MEDS ORDERED: MORPHINE SULFATE 4 MG/ML VIAL IV PRN ×2 (16:45)
--- NOTE | 2025-04-23 17:48 | NUR ---
PT RESTING IN BED W/ EYES CLSOED, APPEARS TO BE COMFORTABLE. AGONAL BREATHING APPEARS TO HAVE RESOLVED AT THIS TIME. RESPIRATIONS AT 10BPM. CALL LIGHT WITHIN REACH, BED LOWERED.
--- NOTE | 2025-04-23 18:00 | NUR ---
THIS RN AND LALY RIOS AT BEDSIDE. PT LYING IN BED WITH EYES CLOSED, APPEARS TO NOT BE BREATHING AT THIS TIME. NO HR PRESENT FOR OVER 1 MIN. DOCTOR EDMAR AND NURSING TITLE INSURANCE AGENT NOTIFIED.
--- NOTE | 2025-04-23 18:33 | NUR ---
ALL 3 IVS AND RIDER CATHETER REMOVED, AWARE.
--- NOTE | 2025-04-23 18:57 | NUR ---
FAMILY TO BEDSIDE, SECRETARY TO BOARD OF COMMISSIONERS TO BEDSIDE.
--- NOTE | 2025-04-23 19:40 | NUR ---
Chaplain Sanchez was called in at 181 as patient had . Upon arrival at 183, donor line had been called and patient had released.
--- NOTE | 2025-04-23 20:00 | NUR ---
TYSHAWN FROM SPIRITUAL CARE AND JACINTA FROM [facility] IN pt ROOM. pt OFF FLOOR AT THIS TIME WITH JACINTA FROM [facility]. HEALTH OUTREACH WORKER MADE AWARE AND UPDATED.
--- NOTE | 2025-04-23 20:02 | NUR ---
Family arrived at 1850, and Chaplain Sanchez took family into room of . Family asked for prayers, which were given, and then asked for an alternate location other than the room with the . explained options, and [facility] was chosen. Inspector [employer] then met with family and doctor over a paperwork request. Mortuary was initually called at 1912, but mortuary was occupied with another family. Mortuary returned call at 193. Family belongins of were sent with family. Mortuary arrived at 194 and departed at 1950
== END 2025-04-23 20:00 | DRG 640 ==
LOC: ED 09:00 → MS 12:07
PROVIDERS: Emergency Medicine; ADMIT Internal Medicine; ATTEND Family Medicine
PROC: 0T9B70Z Drainage of Bladder with Drainage Device, Via Natural or Artificial Opening (ICD-10-PCS; principal; 2025-04-20)
PROC: 3E03329 Introduction of Other Anti-infective into Peripheral Vein, Percutaneous Approach (ICD-10-PCS; 2025-04-20)
PROC: 30233N1 Transfusion of Nonautologous Red Blood Cells into Peripheral Vein, Percutaneous Approach (ICD-10-PCS; 2025-04-21)
DX: E83.52 Hypercalcemia (principal); A41.9 Sepsis, unspecified organism; N17.9 Acute kidney failure, unspecified; C79.51 Secondary malignant neoplasm of bone; C79.31 Secondary malignant neoplasm of brain; E87.0 Hyperosmolality and hypernatremia; C80.1 Malignant (primary) neoplasm, unspecified; Z51.5 Encounter for palliative care; Z66 Do not resuscitate; E86.0 Dehydration; D63.0 Anemia in neoplastic disease; M19.90 Unspecified osteoarthritis, unspecified site; M84.552D Pathological fracture in neoplastic disease, left femur, subsequent encounter for fracture with routine healing; Z96.642 Presence of left artificial hip joint; Z79.82 Long term (current) use of aspirin
CPT/HCPCS: 36415; 36430; 51702; 71045; 77075; 80048; 80053; 81001; 82310; 83605; 83735; 84484; 85025; 85060; 86850; 86900; 86901; 86922; 87040; 87088; 93005; 93010; 94760; 94762; 96361; 96365; 96375; 96376; 99285-25; A9270; J0630; J0696; J1650; J2060; J2270; J3010; J3480; J3489; J3490; J7030; J7040; J7060; P9016